=== PATIENT | male | born 1960 | race Caucasian/White ===

== ENCOUNTER → 2020-11-30 | Outpatient (CLI) | payer OTHER ==
--- NOTE | 2020-11-30 09:30 | RAD ---
EXAM: 1. LUMBAR SPINE 3 VIEWS. 2. LEFT KNEE 2 VIEWS. HISTORY: Low back and left knee pain. COMPARISON: None. FINDINGS: Lumbar alignment is maintained. Mild wedging at T12 and L1 is likely developmental. No frac tures are identified. Intervertebral disc heights are maintained. There is mild diffuse endplate spur ring. Sacroiliac osteoarthritis appears moderate on the right than left. Partial fusion of the right sacroiliac joint cannot be excluded. Atherosclerotic calcifications are noted. No fractures are appreciated at the left knee. There are moderate osteophytes along the medial compar tment. Joint spaces are mostly preserved. There is no joint effusion. Alignment is maintained. IMPRESSION: 1. 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 2. Mild medial compartmental predominant osteoarthritis of the left knee. Electronically signed by: Malgorzata Dorantes MD (11/30/2020 9:28 AM) [id number]
== END ==
LOC: RAD 08:49
PROVIDERS: ATTEND Surgery
DX: M17.12 Unilateral primary osteoarthritis, left knee (principal); M46.1 Sacroiliitis, not elsewhere classified; M25.78 Osteophyte, vertebrae
CPT/HCPCS: 72100; 73560